=== PATIENT | female | born 1965 | race Hispanic/Latino ===

== ENCOUNTER 2024-02-01 14:37 | Emergency (ER) | payer SELFPAY ==
[~2024-02-01] VITALS: Ht 162.6 cm; Wt 63.2 kg
[2024-02-01 16:35] VITALS: PULSE 66; RESP 16; TEMP 98.2; O2SAT 100
== END 2024-02-01 16:35 | disposition home or self-care (01) ==
LOC: FSED 14:41
DX: S62.622A Displaced fracture of middle phalanx of right middle finger, initial encounter for closed fracture (principal); W22.09XA Striking against other stationary object, initial encounter; Y93.E9 Activity, other interior property and clothing maintenance; Y92.89 Other specified places as the place of occurrence of the external cause; E11.9 Type 2 diabetes mellitus without complications
CPT/HCPCS: 99284